=== PATIENT | male | born 1975 | race Caucasian/White ===

== ENCOUNTER 2018-02-21 07:57 | Observation (INO) ==
[2018-02-21 08:11] LABS: Baso # (Auto) 0.4 th/mm3 (0.0-0.2); Baso % (Auto) 3.6 % (0.0-2.0); Eos # (Auto) 0.3 th/mm3 (0.0-0.4); Eos % (Auto) 2.4 % (0.0-4.0); Hematocrit 50.1 % (39.0-51.0); Hemoglobin 17.5 gm/dL (13.0-17.0); Lymph # (Auto) 2.2 th/mm3 (1.0-4.8); Lymph % (Auto) 20.1 % (9.0-44.0); Mean Corpuscular HGB Conc 34.8 % (32.0-36.0); Mean Corpuscular Hemoglobin 32.3 pg (27.0-34.0); Mean Corpuscular Volume 92.6 fL (80.0-100.0); Mean Platelet Volume 8.3 fL (7.0-11.0); Mono # (Auto) 0.5 th/mm3 (0.0-0.9); Mono % (Auto) 4.7 % (0.0-8.0); Neut # (Auto) 7.4 th/mm3 (1.8-7.7); Neut % (Auto) 69.2 % (16.0-70.0); Platelet Count 243 th/mm3 (150-450); Red Blood Count 5.41 mil/mm3 (4.50-5.90); Red Cell Distribution Width 13.3 % (11.6-17.2); White Blood Count 10.8 th/mm3 (4.0-11.0)
--- NOTE | 2018-02-21 08:17 | XR ---
EXAM DATE: 02/21/2018 12:00 AM EDT AGE/SEX: 42 years / Male INDICATIONS: Chest pain/pressure x 4 days. CLINICAL DATA: This is the patient's initial encounter. Patient reports that signs and symptoms have been present for 4 - 6 days and indicates a pain score of 6/10. MEDICAL/SURGICAL HISTORY: Hypercholesterolemia. None. COMPARISON: [place], CHEST SINGLE AP, 11/02/2015. . FINDINGS: A single AP view of the chest demonstrates the lungs to be symmetrically aerated without evidence of mass, infiltrate or effusion. The cardiomediastinal contours are unremarkable. Osseous structures a re intact. CONCLUSION: Negative examination. Electronically signed by: Shola Delacruz MD 02/21/2018 8:16 AM EDT
--- NOTE | 2018-02-21 08:20 | ED ---
HPI General Chief Complaint: Chest Pain Stated Complaint: CP X4 days Time Seen by Provider: 02/21/18 08:12 History of Present Illness HPI narrative: He complains of chest pain. Duration is 3 days. Severity is moderate. Location is left upper chest. It is not exertional. Feels like a pressure and heaviness on his chest. No shortness of breath or pleuritic symptoms. No alleviating factors. No exacerbating factors. He is currently chest pain-free. Related Data Home Medications Medication Instructions Recorded Confirmed No Known Home Medications 02/21/18 02/21/18 Allergies Allergy/AdvReac Type Severity Reaction Status Date / Time No Known Allergies Allergy Verified 02/21/18 08:30 Review of Systems ROS: all other systems reviewed are negative [facility] Medical History Medical History Patient denies medical problems (Acute) Surgical History Surgical History No history of previous surgery (Acute) Social History Social History Substance History: No History of Abuse Smoking Status: Heavy tobacco smoker Tobacco Type: Cigarettes How Often Do You Have a Drink Containing Alcohol: Never Recent Out of Country Travel within the Last 8 Weeks: No Immunization History Tetanus Immunization: Unsure Hx Influenza Vaccine This Season: No Exam Narrative Exam Narrative: GENERAL: Well-nourished, well-developed patient in no apparent distress. SKIN: Focused skin assessment reveals no rash and nodules. Skin is Warm and dry. HEAD: Atraumatic. Normocephalic. EYES: Pupils equal and round. No scleral icterus. No injection or drainage. ENT: No nasal bleeding or discharge. Mucous membranes pink and moist. NECK: Trachea midline. No JVD. CARDIOVASCULAR: Regular rate and rhythm. No murmur appreciated. RESPIRATORY: No accessory muscle use. Clear to auscultation. Breath sounds equal bilaterally. GASTROINTESTINAL: Abdomen soft, non-tender, nondistended. Hepatic and splenic margins not palpable. MUSCULOSKELETAL: No obvious deformities. No clubbing. No cyanosis. No edema. NEUROLOGICAL: Awake and alert. No obvious cranial nerve deficits. Motor grossly within normal limits. Normal speech. PSYCHIATRIC: Appropriate mood and affect; insight and judgment normal. Course Initial Documented Vital Signs Temperature 98.2 F 02/21/18 08:01 Pulse Rate 89 02/21/18 08:01 Respiratory Rate 18 02/21/18 08:01 Blood Pressure 140/89 02/21/18 08:01 Pulse Oximetry 98 02/21/18 08:01 Last Documented Vital Signs Temperature 98.2 F 02/21/18 08:01 Pulse Rate 89 02/21/18 08:10 Respiratory Rate 18 02/21/18 08:10 Blood Pressure 134/91 H 02/21/18 08:10 Pulse Oximetry 98 02/21/18 08:10 Medical Decision Making MDM Narrative Medical decision making narrative: IV placed and labs sent. I reviewed his EKG. I gave him aspirin. He has multiple risk factors for coronary disease including smoking and family history of CAD. He says his mother of IA at age 53. He is never had cardiac stress testing. Plan is to obtain ER workup and if reasonably normal will do 23-hour observation in the chest pain center to rule out cardiac cause of his symptoms. EKG shows no ST elevation Workup is complete here and negative. He will be in observation as above Medical Screen Exam Complete: Yes Emergency Medical Condition: Yes Differential Diagnosis Differential Diagnosis: Differential diagnosis includes IA, angina, pericarditis , pleurisy, GERD, anxiety. Medical Records Medical records reviewed: Yes I reviewed the patient's medical records. Lab Data Lab results reviewed: Yes I reviewed the patient's lab results. Lab results narrative: General labs and cardiac enzymes are normal Result diagrams: 02/21/18 08:05 02/21/18 08:05 Lab Results 02/21/18 02/21/18 Range/Units 08:05 08:05 CBC w Diff Auto diff final WBC 10.8 (4.0-11.0) th/mm3 RBC 5.41 (4.50-5.90) mil/mm3 Hgb 17.5 H (13.0-17.0) gm/dL Hct 50.1 (39.0-51.0) % MCV 92.6 (80.0-100.0) fL MCH 32.3 (27.0-34.0) pg MCHC 34.8 (32.0-36.0) % RDW 13.3 (11.6-17.2) % Plt Count 243 (150-450) th/mm3 MPV 8.3 (7.0-11.0) fL Neut % (Auto) 69.2 (16.0-70.0) % Lymph % (Auto) 20.1 (9.0-44.0) % [place] % (Auto) 4.7 (0.0-8.0) % Eos % (Auto) 2.4 (0.0-4.0) % Baso % (Auto) 3.6 H (0.0-2.0) % Neut # (Auto) 7.4 (1.8-7.7) th/mm3 Lymph # (Auto) 2.2 (1.0-4.8) th/mm3 [place] # (Auto) 0.5 (0.0-0.9) th/mm3 Eos # (Auto) 0.3 (0.0-0.4) th/mm3 Baso # (Auto) 0.4 H (0.0-0.2) th/mm3 WBC Differential . Differential Comment . Sodium 142 (136-145) meq/L Potassium 4.0 (3.5-5.1) meq/L Chloride 107 (98-107) meq/L Carbon Dioxide 25.2 (21.0-32.0) meq/L Anion Gap 10 (5-15) meq/L BUN 11 (7-18) mg/dL Creatinine 1.10 (0.60-1.30) mg/dL Estimated GFR 73 L (>89) mL/min Random Glucose 105 (74-106) mg/dL Calcium 9.1 (8.5-10.1) mg/dL Total Creatine Kinase 132 (39-308) U/L CK-MB (CK-2) Less than 1.0 (0.5-3.6) ng/mL Troponin I Less than 0.02 L (0.02-0.05) ng/mL Imaging Data Attestation: I personally reviewed and interpreted this imaging study as follows : My impression: Chest x-ray is normal Radiologist's impression: Chest X-Ray 02/21/18 00:00 CONCLUSION: Negative examination. ECG Data EKG Prior to Arrival: No Attestation: I personally reviewed and interpreted this ECG as follows: Prior ECG tracings: not available for review Interpretation: EKG shows a sinus rhythm with a rate of 97. There are no ST elevations. PA interval and axis are normal Discharge Plan Discharge Disposition Patient Disposition: 30 Still Patient Discharge Details Diagnosis: Chest pain in adult Physicians Team ED Provider: Marcus Burt Primary Care Provider: Primary Care Jamilah Denny Rxs /Orders / Referrals /Forms Prescriptions: No Action No Known Home Medications RF: 0 Discharge Instructions Patient Printed Instructions: Chest Pain (ED) Discharge Interventions Interventions: Vital Signs Last Done: 02/21/18 08:10 Status ED Status: With Doctor
[2018-02-21 08:21] LABS: Chloride 107 meq/L (98-107); Sodium 142 meq/L (136-145)
[2018-02-21 08:23] LABS: Calcium 9.1 mg/dL (8.5-10.1)
[2018-02-21 08:24] LABS: Anion Gap 10 meq/L (5-15); Blood Urea Nitrogen 11 mg/dL (7-18); Carbon Dioxide 25.2 meq/L (21.0-32.0); Glucose,Random 105 mg/dL (74-106)
[2018-02-21 08:27] LABS: Glomerular Filtration Rate 73 mL/min (>89)
[2018-02-21 08:30] LABS: Creatine Kinase 132 U/L (39-308)
[2018-02-21] MEDS ORDERED: Morphine Inj 4 MG/ML Vial IV.PUSH PRN ×2 (09:27)
[2018-02-21] MEDS ORDERED: Sod Chloride 0.9% Inj 1,000 ML IV.CONT SCH (09:30)
[2018-02-21 11:55] LABS: Creatine Kinase 111 U/L (39-308)
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
[2018-02-21 15:16] LABS: Creatine Kinase 110 U/L (39-308)
--- NOTE | 2018-02-21 16:32 | CT ---
EXAM DATE: 02/21/2018 2:11 PM EDT AGE/SEX: 42 years / Male INDICATIONS: Headache and dizziness. CLINICAL DATA: This is the patient's initial encounter. Patient reports that signs and symptoms have been present for 2 days and indicates a pain score of 2/10. MEDICAL/SURGICAL HISTORY: None. None. RADIATION DOSE: 51.99 CTDI (mGy) COMPARISON: No prior exams available for comparison. TECHNIQUE: CT of the head without contrast. Using automated exposure control and adjustment of the mA and/or kV according to patient size, radiation dose was kept as low as reasonably achievable to ob tain optimal diagnostic quality images. DICOM format image data is available electronically for revi ew and comparison. FINDINGS: Cerebrum: The ventricles are normal for age. No evidence of midline shift, mass lesion, hemorrhage or acute infarction. No extraaxial fluid collections are seen. Posterior Fossa: The cerebellum and brainstem are intact. The 4th ventricle is midline. The cerebe llopontine angle is unremarkable. Extracranial: The visualized portion of the orbits is intact. Skull: The calvaria is intact. No evidence of skull fracture. CONCLUSION: 1. Negative CT Head non contrast. . Electronically signed by: Donald Floyd MD 02/21/2018 4:31 PM EDT
--- NOTE | 2018-02-21 16:33 | TR ---
Date Performed: 02/21/2018 Time Performed: 15:14:04 DOCTOR: Sofie Salgado DRUG LIST: CLINICAL HISTORY: REASON FOR TEST: REASON FOR ENDING: OBSERVATION: CONCLUSION: Jas protocol completed, test stopped secondary to reaching target heart rate. Grea t exercise tolerance. No reproducible chest discomfort. Good BP response. Recovery quick and unremark able. Maximum CS=184 Target HR Yfdezdpd=128.0% Maximum JJ=648/88 Total Exercise Time=6:31 COMMENTS: No ischemia
[2018-02-21 16:40] VITALS: BP 154/99; PULSE 95; RESP 20; TEMP 97.8; O2SAT 99
--- NOTE | 2018-02-21 17:14 | ECG ---
Date Performed: 02/21/2018 Time Performed: 11:21:06 PTAGE: 42 years EKG: Sinus rhythm NORMAL ECG PREVIOUS TRACING : 02/21/2018 08.06 Since the previous tracing, no significant change noted DOCTOR: Jeffery Shell Interpretating Date/Time 02/21/2018 17:10:40
--- NOTE | 2018-02-21 17:14 | ECG ---
Date Performed: 02/21/2018 Time Performed: 08:06:51 PTAGE: 42 years EKG: Sinus rhythm NORMAL ECG NO PREVIOUS TRACING DOCTOR: Jeffery Shell Interpretating Date/Time 02/21/2018 17:10:28
[2018-02-21 18:02] LABS: Chol/HDL Ratio 4.43 Ratio; HDL Cholesterol 49.4 mg/dL (40.0-60.0)
--- NOTE | 2018-02-21 22:10 | ECG ---
Date Performed: 02/21/2018 Time Performed: 14:38:53 PTAGE: 42 years EKG: Sinus rhythm NORMAL ECG PREVIOUS TRACING : 02/21/2018 11.21 Since the previous tracing, no significant change noted DOCTOR: Milagro Ferrer Interpretating Date/Time 02/21/2018 22:10:06
[2018-02-22] MEDS ORDERED: Aspirin 325 MG Tablet PO SCH (09:00)
== END 2018-02-21 17:08 | disposition home or self-care (01) ==
LOC: PH3 07:57 → PHED 07:57 → PH3 09:40
PROVIDERS: ADMIT Hospitalist; ATTEND Hospitalist
DX: R07.9 Chest pain, unspecified; F17.210 Nicotine dependence, cigarettes, uncomplicated; Z82.49 Family history of ischemic heart disease and other diseases of the circulatory system; R51 Headache